=== PATIENT | male | born 1950 | race Caucasian/White ===

== ENCOUNTER 2017-06-08 15:37 | Inpatient (IN) | payer MEDICARE, BC ==
[~2017-06-08] VITALS: Ht 175.3 cm; Wt 68.2 kg
--- NOTE | ~2017-06-08 | DS ---
Discharge Summary [facility] [address] [place]. [address] NAME: PRABHAKAR ESPINOSA : 50 STATUS : DIS IN PAT#: [id number] AGE: 66 ADM/REG DATE : 06/10/17 MR#: [id number] REPORT SERV DATE: 06/27/17 DICTATED BY: ALBINO PERLA DATE: 06/26/17 REPORT STATUS : Draft TRANSCRIBED BY: MODConor DATE: 06/26/17 Data Collection from hospitalization DISCHARGE DIAGNOSIS(ES): 1. Infection post bifemoral bypass graft. 2. Hypertension. 3. Tobacco use. 4. Peripheral vascular disease. 5. Thrombocytopenia. 6. Probable chronic obstructive pulmonary disease. CONSULTATIONS: David Barajas M.D. PROCEDURES PERFORMED: 1. Incision and drainage abscess, bilateral groin sites, vac pack placement x2 right and left groin sites, 06/09/2017. 2. Vac pack placement-removal, incision and drainage, PV with subcutaneous muscle flaps, 06/11/2017. 3. closure of bilateral groin sites, 06/15/2017. 4. CTA of the abdomen and pelvis, 06/08/2017. DISCHARGE MEDICATIONS: Augmentin 875 mg twice a day, aspirin 81 mg daily, Cipro 500 mg every 12 hours, CoQ10 200 mg every day at bedtime, Proscar 5 mg every day at bedtime, Zestoretic one tablet every morning, oxycodone 5 mg every four to six hours as needed, Pravachol 40 mg at bedtime, and Flomax 0.4 mg every day at bedtime. CONDITION AT DISCHARGE: Stable. DISPOSITION: The patient was discharged home to be followed by home health care on a low- sodium, low-cholesterol, cardiac diet with activities as instructed. He would follow up with Brynn Guerrero on 06/20/[address] David Barajas two weeks following discharge. He would follow up for lab work on 06/27/2017. HOSPITAL COURSE: This is a 66-year-old man that we received a call from the home health nurse saying that the left groin wound tunnel had increased significantly over 24 hours and that the tunnel currently measured 7 cm. There was also reported that the right groin was now swelling and it was felt that he should be brought back in for evaluation. The patient said the right groin was swelling and hurting. He was admitted to the hospital at this time for further evaluation and treatment. Upon admission, a CTA of the abdomen and pelvis was performed. He was evaluated by Dr. David Barajas. Cultures on 05/22/2017 had grown Pseudomonas, Citrobacter, and Enterococcus. He had been on oral antibiotics. He had progression of his wound symptoms. He had pain and drainage on the left and swelling at the site of the incision on the right groin as well. He denied any fevers or chills. He was felt to have infected aortofemoral graft on the left side with potential infection as well on the right. Zosyn was going to be started. Plans were being made for the patient to undergo incision and drainage with debridement. On the , the patient was taken to the operating room where he underwent the above-mentioned procedure. He tolerated this well and there were no complications. On the , he became Discharge Summary [address] [address] NAME: PRABHAKAR ESPINOSA ROXANE : 50 STATUS : DIS IN PAT#: [id number] AGE: 66 ADM/REG DATE : 06/10/17 MR#: [id number] REPORT SERV DATE: 06/27/17 DICTATED BY: ALBINO PERLA DATE: 06/26/17 REPORT STATUS : Draft TRANSCRIBED BY: CELE DATE: 06/26/17 a full admit. He had no new symptoms. Zosyn was continued. The patient had some discoloration of his forefoot that appeared to look like a sun rich. He had 2+ dorsalis pedis pulses. Compression stockings were in place. He was going to be held n.p.o. after midnight with plans to return to the operating room. On the , he had no new symptoms. His lungs were clear. White count was 8.6. Zosyn was continued. Blood cultures were negative. He was taken back to the operating room where he underwent the above-mentioned procedure. He tolerated this well and there were no complications. On 06/12/2017, he was afebrile. His abdomen was soft and nontender. He had positive bowel sounds. Blood cultures were negative. Wound cultures were negative. The next day, he had no new symptoms. White count was 8.5. He remained stable over the next few days. On 06/15/2017, he was taken to the operating room where he underwent the above-mentioned procedure. He tolerated this well and there were no complications. One of his operative cultures had grown Pseudomonas. He was changed to Unasyn/Cipro. It was felt that he would probably be discharged on oral Augmentin/Cipro. The left groin wound culture had revealed Pseudomonas. It was felt that he would need six weeks of postop antibiotic treatment. Discharge planning was performed. The patient was adamant about being discharged. The patient had not been out of bed since admission. He had no complaints of pain. Discharge planning was performed. On 06/17/2017, he denied any pain. He was tolerating oral intake. The wound VAC was removed. Jason and sutures were intact. Liver function tests were within normal limits. Platelet count had increased to 93. Left groin wound culture was now negative. It was felt that he would need 5 more weeks of antibiotic treatment. He was going to go home on Cipro and Augmentin. Discharge instructions were given. Due to his improved and stable condition, he was discharged home with the above-stated instructions. Information collected by: Hattie Brooks I submit the above information as my discharge summary. TG/MODL Albino Perla M.D. / [id number] CC: Aimee Joseph III, D.O. Mark Anderson, M.D.
--- NOTE | ~2017-06-08 | OP ---
Record Of Operation [facility] [address] [place]. [address] NAME: PRABHAKAR ESPINOSA : 50 STATUS : DIS IN PAT#: [id number] AGE: 66 ADM/REG DATE : 06/10/17 MR#: [id number] REPORT SERV DATE: 06/28/17 DICTATED BY: ALBINO PERLA DATE: 06/28/17 REPORT STATUS : Draft TRANSCRIBED BY: MODL DATE: 06/28/17 DATE OF PROCEDURE: 06/11/2017 PREPROCEDURE DIAGNOSIS: Bilateral groin wound, status post I and D with exposed aortobifemoral graft bilateral. PROCEDURE PERFORMED: 1. VAC change bilateral groin. 2. Right sartorius muscle flap to cover the entire limb of the right aortobifemoral graft. 3. Left sartorius muscle flap to cover the entire limb of the left aortobifemoral graft. 4. Bilateral deep culture. ANESTHESIA: General. COMPLICATIONS: None. INDICATION FOR PROCEDURE: Secondary to this very pleasant 66-year-old gentleman presenting with evidence of infected bilateral groin wounds and exposed graft. The patient had successful postoperative course and consideration was for possible muscle flap coverage of the graft material. Consent was given. DETAILS OF PROCEDURE: The patient was brought to the endovascular operating room and placed in a supine position, prepped and draped in a routine sterile fashion with attention to the bilateral groin. The right groin was addressed first. The wound was then irrigated clean. There was no purulent material. Everything appeared to have excellent granulation tissue. The graft appeared to be very incorporated and then the dissection proceeded down to the sartorius muscle, which was loop controlled and then skeletonized cephalad all way to the insertion. This was then dissected with cautery. This gave us plenty of length to swing the muscle flap to cover the entire graft segment, which was then sutured carefully to the tissues surrounding the graft. At this point, a VAC sponge was then placed. All bleeding controlled and negative pressure was applied. On the left groin, the wound was then irrigated clean. Again no purulence was noted. Deep cultures were taken. The sartorius was then identified and skeletonized proximally, divided at its insertion and then swung into cover the left limb of the graft. This was adequate. A 4 cm muscle flap was then created and sutured into position covering the entire aspect of the graft. VAC sponge was then placed and then held in place with benzoin, Ioban, and suction applied. The patient tolerated the procedure well. CL/MODL Albino Perla M.D. / [id number] Record Of Operation [address] [address] NAME: PRABHAKAR ESPINOSA : 50 STATUS : DIS IN PAT#: [id number] AGE: 66 ADM/REG DATE : 06/10/17 MR#: [id number] REPORT SERV DATE: 06/28/17 DICTATED BY: ALBINO PERLA DATE: 06/28/17 REPORT STATUS : Draft TRANSCRIBED BY: CELE DATE: 06/28/17 CC: Aimee Joseph III, D.O.
--- NOTE | ~2017-06-08 | OP ---
Record Of Operation [facility] [address] [place]. [address] NAME: PRABHAKAR ESPINOSA : 50 STATUS : DIS IN PAT#: [id number] AGE: 66 ADM/REG DATE : 06/10/17 MR#: [id number] REPORT SERV DATE: 06/28/17 DICTATED BY: ALBINO PERLA DATE: 06/28/17 REPORT STATUS : Draft TRANSCRIBED BY: MODL DATE: 06/28/17 DATE OF PROCEDURE: 06/09/2017 PREPROCEDURE DIAGNOSES: 1. Seroma, right groin. 2. Abscess, left groin. 3. Status post aortobifemoral bypass graft. POSTOPERATIVE DIAGNOSES: 1. Seroma, right groin. 2. Abscess, left groin. 3. Status post aortobifemoral bypass graft. PROCEDURE PERFORMED: 1. Exploration of right groin with resection of seroma/fluid collection over the right limb of the aortobifemoral graft. 2. Right femoral deep cultures taken. 3. Right femoral VAC placement. 4. Exploration of left groin with resection of abscess cavity over exposed left limb of aortobifemoral graft. 5. Deep cultures, left groin. 6. VAC placement, left groin. ATTENDING PHYSICIAN: Albino Perla M.D. ANESTHESIA: General. COMPLICATIONS: None. INDICATION FOR PROCEDURE: Secondary to this very pleasant 66-year-old gentleman presenting with evidence of expanding seroma on the right groin consistent with possible early infection with a known hematoma on the left groin that eventually opened and started to drain. Recommendations were made for I and D of both right and left groin to define the graft to determine if salvage of the graft was possible. Risks and benefits were discussed with the patient. Consent was obtained. DETAILS OF PROCEDURE: The patient was brought to the endovascular operating room, placed in supine position, prepped and draped in routine sterile fashion with attention to bilateral groins. The right groin was addressed first. This was a clean portion of the operation. The surgical resection of the scar was then performed. Dissection proceeded down through the skin and subcutaneous tissues to a cavity, that was entered. Serous fluid was noted. No gross infection was noted. However, at the base of the serous fluid collection, clear evidence of the graft was seen. The anastomosis was not seen, however, just a knuckle of the graft was visible. Deep cultures were then taken. Pulse lavage was then performed for approximately a liter and a half, and all devitalized tissue was then debrided away, and a vacuum sponge was laid carefully into the wound covering all surfaces of the cavity. This Record Of Operation [facility] [address] [place]. [address] NAME: PRABHAKAR ESPINOSA : 50 STATUS : DIS IN PAT#: [id number] AGE: 66 ADM/REG DATE : 06/10/17 MR#: [id number] REPORT SERV DATE: 06/28/17 DICTATED BY: ALBINO PERLA DATE: 06/28/17 REPORT STATUS : Draft TRANSCRIBED BY: MODL DATE: 06/28/[address] with benzoin and Ioban, and a suction tube was attached and then placed to suction. Next, the left groin was then addressed. Again, similar dissection was then performed, ellipsing out the former incision. Dissection proceeded down to a cavity that had clear purulence associated with this, and this was also over top of exposed knuckle of the graft. Deep cultures were then taken, and wide debridement of any devitalized tissue was then performed to remove the entire abscess cavity and all devitalized tissues. An additional 2 L of pulse lavage was then completed. VAC sponge was then placed covering all aspects of the wound and held in place with benzoin and Ioban. The tube was attached, and negative pressure was then applied. The patient tolerated the procedure well. There was no major bleeding, and the patient was then discharged to recovery. CL/MODL Albino Perla M.D. / [id number] CC: Aimee Joseph III, D.O.
--- NOTE | ~2017-06-08 | OP ---
Record Of Operation [facility] [address] [place]. [address] NAME: PRABHAKAR ESPINOSA : 50 STATUS : DIS IN PAT#: [id number] AGE: 66 ADM/REG DATE : 06/10/17 MR#: [id number] REPORT SERV DATE: 06/28/17 DICTATED BY: ALBINO PERLA DATE: 06/28/17 REPORT STATUS : Draft TRANSCRIBED BY: MODL DATE: 06/28/17 DATE OF PROCEDURE: 06/15/2017 PREPROCEDURE DIAGNOSIS: Bilateral groin wound. POSTOPERATIVE DIAGNOSIS: Bilateral groin wound. PROCEDURES PERFORMED: 1. Closure of right groin wound, 15 cm. 2. Closure of left groin wound, 20 cm. ANESTHESIA: Local MAC. COMPLICATIONS: None. INDICATION FOR PROCEDURE: Secondary to this very pleasant 66-year-old gentleman presenting with evidence of exposed right and left limbs of the aortobifemoral graft. A bilateral muscle flap was then placed on 06/11/2017, and recommendations were made for closure of wound if found to be stable. Risks and benefits discussed. Consent was obtained. DETAILS OF PROCEDURE: The patient was brought to the endovascular operating room, placed in the supine position, prepped and draped in routine sterile fashion with attention to the bilateral groins. The right and left groin were then addressed independently. The right groin was irrigated clean, had very good viability of the muscle covering the graft. No evidence of infection, and deep layers were then closed with interrupted Vicryl, and the skin was then closed with interrupted vertical mattress, Prolene. A total of 15 cm was then closed on the right side. On the left side, similar findings were noted, no infection, appeared to be adequately repaired. The muscle was viable covering the graft, and the skin was then closed for a total 20 cm with interrupted vertical mattress, Prolene sutures. The patient tolerated the procedure well. CL/MODL Albino Perla M.D. / [id number] CC: Aimee Joseph III, D.O.
--- NOTE | ~2017-06-08 | CN ---
Consultation Report [facility] [address] [place]. [address] NAME: PRABHAKAR ESPINOSA : 50 STATUS : ADM IN [facility]#: [id number] AGE: 66 ADM/REG DATE : 06/10/17 MR#: [id number] REPORT SERV DATE: 06/11/17 DICTATED BY: RAMON CARUSO DATE: 06/09/17 REPORT STATUS : Draft TRANSCRIBED BY: MODL DATE: 06/09/17 INFECTIOUS DISEASE CONSULT DATE OF CONSULTATION: 06/09/2017 REASON FOR REFERRAL: Evaluation and treatment of postoperative infection. HISTORY OF PRESENT ILLNESS: The patient is a 66-year-old male. He has a history of hypertension, hyperlipidemia, benign prostatic hypertrophy, chronic venous stasis of lower extremities, peripheral vascular disease. He has an abdominal aortic aneurysm. He had progressive ischemic symptoms in his lower extremities, so on 04/30/2017 underwent aortofemoral bypass here at [facility] by Dr. Perla as outlined in his operative note. He postoperatively had confusion, tried to get out of bed several times unattended and had dehiscence of his wound. He also had some postop urinary retention and is followed by Urology. He had to return to the operating room in late April for repair of the dehiscence. A VAC pack was placed on his wound and was sent home with that he had purulent drainage from the left side that was cultured in Dr. Perla's office on 05/22/2017 and it grew Pseudomonas, Citrobacter, and Enterococcus. He was placed on oral antibiotics, but the patient is unaware of what the antibiotic was. He had progression of his wound symptoms, so was admitted last evening. He has pain and drainage on the left. There is also swelling at the site of the incision in the right groin as well. He denies fevers, chills, or flu-like symptoms. PAST MEDICAL HISTORY: Otherwise unremarkable. MEDICATIONS: As described above. ALLERGIES: HE HAS NO KNOWN ANTIMICROBIAL ALLERGIES. SOCIAL HISTORY: He is retired, single. He continues to smoke. He has no history of alcohol or substance abuse. FAMILY HISTORY: Noncontributory. PHYSICAL EXAMINATION: GENERAL: He is a nontoxic, elderly male, somewhat agitated though speech at present is coherent and is oriented to place and time. VITAL SIGNS: His temperature has been normal since arrival here, most recently 98.4, pulse 80, respirations 18, blood pressure 116/61, and his weight is 71 kg. HEENT: Sclerae clear. No oral lesions. NECK: Supple without lymphadenopathy. LUNGS: Clear. HEART: Regular rate and rhythm. ABDOMEN: Soft, nontender. Positive bowel sounds. In the right groin, there is about a 7-8 cm area of fullness with mild erythema and warmth over it and mildly tender on the left Consultation Report [address] [place]. [address] NAME: PRABHAKAR ESPINOSA : 50 STATUS : ADM IN PAT#: [id number] AGE: 66 ADM/REG DATE : 06/10/17 MR#: [id number] REPORT SERV DATE: 06/11/17 DICTATED BY: RAMON CARUSO DATE: 06/09/17 REPORT STATUS : Draft TRANSCRIBED BY: CELE DATE: 06/09/17 side. There is a small 1 cm opening with purulent drainage. No foul odor associated with it. EXTREMITIES: No lesions seen on the legs. LABORATORY DATA: His white blood cell count 7.2, hematocrit 36.7, platelets 89, unremarkable differential on the white blood cell count. BUN and creatinine 21 and 0.98. Procalcitonin less than 0.05. IMPRESSION: Infected aortofemoral graft on the left side with potentially infection as well on the right. The pathogens from cultures done on 05/22/2017, Pseudomonas, Citrobacter, and Enterococcus would be expected ones in the groin, so I suspect those are indeed the pathogens, doubt Staph aureus since it should have easily grown on that culture. RECOMMENDATIONS: 1. We will start Zosyn. We will cover all of these organisms isolated on that culture. 2. Debridement as per Dr. Perla. 3. I will follow the patient with you. I appreciate very much your consulting on this patient. GLENN/CELE Ramon Caruso M.D. / [id number] CC: Aimee Joseph III, D.O.
[~2017-06-08 15:37] MED LIST: CO Q-10200 MG PO; FLOMAX4 PO; HALF81 PO; OXYCOD PO; PRAVACHOL40 MG PO; PRIN10 PO; PROSCAR5 PO; ZESTORETIC1 TAB PO; [UNRECOGNIZED DRUG - OTHER]
[2017-06-08 16:18] LABS: BASOPHILS 0.5 %; BASOPHILS ABSOLUTE 0.04 10/3/uL (0.0-0.16); EOSINOPHILS 0.5 %; EOSINOPHILS ABSOLUTE 0.04 10/3/uL (0.0-0.53); ER CBC TAT 0 Hrs 05 Mins; HEMATOCRIT 40.2 % (40.0-51.0); HEMOGLOBIN 13.3 g/dL (13.6-17.8); IMMATURE GRANULOCYTES 0.5 %; IMMATURE GRANULOCYTES ABSOLUTE 0.04 10/3/uL (0.0-0.11); MEAN CORPUS HGB CONC 33.1 g/dL (32.0-36.0); MEAN CORPUSCULAR HEMOGLOB 30.2 pg (26.0-34.0); MEAN CORPUSCULAR VOLUME 91.4 fL (80-100); MEAN PLATELET VOLUME 10.8 fL (9.2-13.0); MONOCYTES 8.5 %; MONOCYTES ABSOLUTE 0.69 10/3/uL (0.21-1.20); NEUTROPHILS ABSOLUTE 5.57 10/3/uL (2.02-8.40); RBC DISTRIBUTION WIDTH 15.4 % (12.0-16.0); WHITE BLOOD CELLS 8.1 10/3/uL (4.5-10.5)
[2017-06-08 16:19] LABS: MANUAL DIFF NO %; PLATELET COUNT 82 10/3/uL (150-400)
[2017-06-08 16:32] LABS: A/G RATIO 0.7 (0.7-1.9); ALBUMIN 2.8 G/DL (3.5-5.0); ALKALINE PHOSPHATASE 79 U/L (45-117); CALCIUM, SERUM 8.7 MG/DL (8.5-10.4); CHLORIDE, SERUM 105 MMOL/L (96-112); CO2 (CARBON DIOXIDE) 28 MMOL/L (24-34); CREATININE 0.95 MG/DL (0.70-1.30); GFR AFRICAN AMERICAN 96 ML/MIN (>=60); GFR NON AFRICAN AMERICAN 83 ML/MIN (>=60); GLUCOSE, SERUM 110 MG/DL (60-99); SGOT(AST) 14 U/L (5-40); SGPT(ALT) 13 U/L (5-65); SODIUM, SERUM 140 MMOL/L (135-148); TOTAL BILIRUBIN 0.8 MG/DL (0-1.2); TOTAL PROTEIN 6.6 G/DL (6.0-8.5)
[2017-06-08 16:33] LABS: BUN (BLOOD UREA NITROGEN) 19 MG/DL (6-23); GLOBULIN 3.8 G/DL (2.5-4.1); POTASSIUM, SERUM 2.8 MMOL/L (3.5-5.3)
[2017-06-08 17:03] LABS: ASCORBIC ACID (UR NOT ORDER) NEG (NEG); BILIRUBIN, URINE NEGATIVE (NEG); KETONE, URINE NEGATIVE (NEG); LEUKOCYTE ESTERASE(NOT OR NEG (NEG); NITRITE (URINE) NEG (NEG); WBC (NOT ORDERED) (RFLEX) 1 (0-5)
[2017-06-08 21:22] LABS: PROCALCITONIN <0.05 ng/mL (<0.5)
[2017-06-09 05:33] LABS: BASOPHILS 0.6 %; BASOPHILS ABSOLUTE 0.04 10/3/uL (0.0-0.16); EOSINOPHILS 0.6 %; EOSINOPHILS ABSOLUTE 0.04 10/3/uL (0.0-0.53); HEMATOCRIT 36.7 % (40.0-51.0); IMMATURE GRANULOCYTES 0.6 %; IMMATURE GRANULOCYTES ABSOLUTE 0.04 10/3/uL (0.0-0.11); LYMPHOCYTES 24.8 %; LYMPHOCYTES ABSOLUTE 1.79 10/3/uL (0.67-4.30); MEAN CORPUS HGB CONC 32.7 g/dL (32.0-36.0); MEAN CORPUSCULAR HEMOGLOB 29.5 pg (26.0-34.0); MEAN CORPUSCULAR VOLUME 90.2 fL (80-100); MEAN PLATELET VOLUME 11.7 fL (9.2-13.0); MONOCYTES ABSOLUTE 0.58 10/3/uL (0.21-1.20); NEUTROPHILS 65.4 %; NEUTROPHILS ABSOLUTE 4.73 10/3/uL (2.02-8.40); PLATELET COUNT 89 10/3/uL (150-400); RBC DISTRIBUTION WIDTH 15.6 % (12.0-16.0); RED CELL COUNT 4.07 10/6/uL (4.7-6.1); WHITE BLOOD CELLS 7.2 10/3/uL (4.5-10.5)
[2017-06-09 05:36] LABS: MANUAL DIFF NO %
[2017-06-09 05:47] LABS: BUN (BLOOD UREA NITROGEN) 21 MG/DL (6-23); CALCIUM, SERUM 8.7 MG/DL (8.5-10.4); CHLORIDE, SERUM 109 MMOL/L (96-112); CO2 (CARBON DIOXIDE) 28 MMOL/L (24-34); CREATININE 0.98 MG/DL (0.70-1.30); GFR AFRICAN AMERICAN 93 ML/MIN (>=60); GFR NON AFRICAN AMERICAN 80 ML/MIN (>=60); GLUCOSE, SERUM 136 MG/DL (60-99); POTASSIUM, SERUM 3.5 MMOL/L (3.5-5.3); SODIUM, SERUM 144 MMOL/L (135-148)
[2017-06-09] MEDS ORDERED: CIP5 PO (09:55)
[2017-06-09] MEDS ORDERED: DORYX100 MG PO (09:56)
[2017-06-10 05:11] LABS: BASOPHILS 0.3 %; BASOPHILS ABSOLUTE 0.03 10/3/uL (0.0-0.16); EOSINOPHILS 0.4 %; EOSINOPHILS ABSOLUTE 0.04 10/3/uL (0.0-0.53); HEMATOCRIT 33.8 % (40.0-51.0); HEMOGLOBIN 10.9 g/dL (13.6-17.8); IMMATURE GRANULOCYTES 0.6 %; IMMATURE GRANULOCYTES ABSOLUTE 0.06 10/3/uL (0.0-0.11); MEAN CORPUS HGB CONC 32.2 g/dL (32.0-36.0); MEAN CORPUSCULAR HEMOGLOB 29.5 pg (26.0-34.0); MEAN CORPUSCULAR VOLUME 91.4 fL (80-100); MEAN PLATELET VOLUME 10.9 fL (9.2-13.0); MONOCYTES 8.5 %; MONOCYTES ABSOLUTE 0.85 10/3/uL (0.21-1.20); NEUTROPHILS 72.2 %; NEUTROPHILS ABSOLUTE 7.23 10/3/uL (2.02-8.40); PLATELET COUNT 74 10/3/uL (150-400); RBC DISTRIBUTION WIDTH 15.4 % (12.0-16.0)
[2017-06-10 05:12] LABS: MANUAL DIFF NO %
[2017-06-10 05:26] LABS: BUN (BLOOD UREA NITROGEN) 22 MG/DL (6-23); CALCIUM, SERUM 8.6 MG/DL (8.5-10.4); CHLORIDE, SERUM 106 MMOL/L (96-112); CO2 (CARBON DIOXIDE) 27 MMOL/L (24-34); CREATININE 1.12 MG/DL (0.70-1.30); GFR AFRICAN AMERICAN 79 ML/MIN (>=60); GFR NON AFRICAN AMERICAN 68 ML/MIN (>=60); GLUCOSE, SERUM 121 MG/DL (60-99); POTASSIUM, SERUM 3.4 MMOL/L (3.5-5.3); SODIUM, SERUM 141 MMOL/L (135-148)
[2017-06-11 06:06] LABS: BASOPHILS 0.5 %; BASOPHILS ABSOLUTE 0.04 10/3/uL (0.0-0.16); EOSINOPHILS 0.6 %; EOSINOPHILS ABSOLUTE 0.05 10/3/uL (0.0-0.53); HEMOGLOBIN 12.3 g/dL (13.6-17.8); IMMATURE GRANULOCYTES 0.3 %; IMMATURE GRANULOCYTES ABSOLUTE 0.03 10/3/uL (0.0-0.11); LYMPHOCYTES 26.2 %; LYMPHOCYTES ABSOLUTE 2.25 10/3/uL (0.67-4.30); MEAN CORPUS HGB CONC 32.6 g/dL (32.0-36.0); MEAN CORPUSCULAR HEMOGLOB 29.5 pg (26.0-34.0); MEAN CORPUSCULAR VOLUME 90.4 fL (80-100); MEAN PLATELET VOLUME 10.6 fL (9.2-13.0); MONOCYTES 8.4 %; MONOCYTES ABSOLUTE 0.72 10/3/uL (0.21-1.20); NEUTROPHILS ABSOLUTE 5.51 10/3/uL (2.02-8.40); PLATELET COUNT 70 10/3/uL (150-400); RBC DISTRIBUTION WIDTH 15.4 % (12.0-16.0); RED CELL COUNT 4.17 10/6/uL (4.7-6.1); WHITE BLOOD CELLS 8.6 10/3/uL (4.5-10.5)
[2017-06-11 06:07] LABS: HEMATOCRIT 37.7 % (40.0-51.0); MANUAL DIFF NO %
[2017-06-11 06:19] LABS: BUN (BLOOD UREA NITROGEN) 22 MG/DL (6-23); CALCIUM, SERUM 8.7 MG/DL (8.5-10.4); CHLORIDE, SERUM 109 MMOL/L (96-112); CO2 (CARBON DIOXIDE) 28 MMOL/L (24-34); CREATININE 1.19 MG/DL (0.70-1.30); GFR AFRICAN AMERICAN 73 ML/MIN (>=60); GFR NON AFRICAN AMERICAN 63 ML/MIN (>=60); SODIUM, SERUM 142 MMOL/L (135-148)
[2017-06-11 06:20] LABS: GLUCOSE, SERUM 91 MG/DL (60-99); POTASSIUM, SERUM 4.1 MMOL/L (3.5-5.3)
[2017-06-12 06:53] LABS: BASOPHILS 0.2 %; BASOPHILS ABSOLUTE 0.02 10/3/uL (0.0-0.16); EOSINOPHILS 0.9 %; EOSINOPHILS ABSOLUTE 0.07 10/3/uL (0.0-0.53); HEMATOCRIT 35.4 % (40.0-51.0); HEMOGLOBIN 11.5 g/dL (13.6-17.8); IMMATURE GRANULOCYTES 0.4 %; IMMATURE GRANULOCYTES ABSOLUTE 0.03 10/3/uL (0.0-0.11); LYMPHOCYTES 16.1 %; MANUAL DIFF NO %; MEAN CORPUS HGB CONC 32.5 g/dL (32.0-36.0); MEAN CORPUSCULAR HEMOGLOB 29.6 pg (26.0-34.0); MONOCYTES 9.7 %; MONOCYTES ABSOLUTE 0.78 10/3/uL (0.21-1.20); NEUTROPHILS 72.7 %; NEUTROPHILS ABSOLUTE 5.86 10/3/uL (2.02-8.40); PLATELET COUNT 68 10/3/uL (150-400); RED CELL COUNT 3.89 10/6/uL (4.7-6.1); WHITE BLOOD CELLS 8.1 10/3/uL (4.5-10.5)
[2017-06-12 07:06] LABS: BUN (BLOOD UREA NITROGEN) 19 MG/DL (6-23); CHLORIDE, SERUM 106 MMOL/L (96-112); CO2 (CARBON DIOXIDE) 26 MMOL/L (24-34); CREATININE 0.95 MG/DL (0.70-1.30); GFR AFRICAN AMERICAN 96 ML/MIN (>=60); GFR NON AFRICAN AMERICAN 83 ML/MIN (>=60); GLUCOSE, SERUM 99 MG/DL (60-99); POTASSIUM, SERUM 3.4 MMOL/L (3.5-5.3); SODIUM, SERUM 140 MMOL/L (135-148)
[2017-06-12 07:22] LABS: PLATELET ESTIMATE DEC (ADEQUATE); RBC MORPHOLOGY NORM (NORMAL)
[2017-06-13 06:37] LABS: BASOPHILS 0.4 %; BASOPHILS ABSOLUTE 0.03 10/3/uL (0.0-0.16); EOSINOPHILS 0.9 %; EOSINOPHILS ABSOLUTE 0.08 10/3/uL (0.0-0.53); HEMATOCRIT 35.5 % (40.0-51.0); HEMOGLOBIN 11.6 g/dL (13.6-17.8); IMMATURE GRANULOCYTES 0.5 %; IMMATURE GRANULOCYTES ABSOLUTE 0.04 10/3/uL (0.0-0.11); LYMPHOCYTES 18.4 %; LYMPHOCYTES ABSOLUTE 1.56 10/3/uL (0.67-4.30); MEAN CORPUS HGB CONC 32.7 g/dL (32.0-36.0); MEAN CORPUSCULAR HEMOGLOB 29.1 pg (26.0-34.0); MEAN CORPUSCULAR VOLUME 89.2 fL (80-100); MEAN PLATELET VOLUME 11.3 fL (9.2-13.0); MONOCYTES 11.1 %; MONOCYTES ABSOLUTE 0.94 10/3/uL (0.21-1.20); NEUTROPHILS 68.7 %; NEUTROPHILS ABSOLUTE 5.81 10/3/uL (2.02-8.40); PLATELET COUNT 71 10/3/uL (150-400); RBC DISTRIBUTION WIDTH 14.9 % (12.0-16.0); RED CELL COUNT 3.98 10/6/uL (4.7-6.1); WHITE BLOOD CELLS 8.5 10/3/uL (4.5-10.5)
[2017-06-13 06:39] LABS: MANUAL DIFF NO %
[2017-06-13 06:49] LABS: BUN (BLOOD UREA NITROGEN) 20 MG/DL (6-23); CALCIUM, SERUM 8.5 MG/DL (8.5-10.4); CHLORIDE, SERUM 107 MMOL/L (96-112); CO2 (CARBON DIOXIDE) 25 MMOL/L (24-34); CREATININE 0.92 MG/DL (0.70-1.30); GFR AFRICAN AMERICAN 100 ML/MIN (>=60); GFR NON AFRICAN AMERICAN 86 ML/MIN (>=60); GLUCOSE, SERUM 102 MG/DL (60-99); POTASSIUM, SERUM 3.4 MMOL/L (3.5-5.3); SODIUM, SERUM 138 MMOL/L (135-148)
[2017-06-13 07:12] LABS: PLATELET ESTIMATE DEC (ADEQUATE)
[2017-06-13 07:13] LABS: RBC MORPHOLOGY NORM (NORMAL)
[2017-06-14 07:36] LABS: BASOPHILS 0.7 %; BASOPHILS ABSOLUTE 0.05 10/3/uL (0.0-0.16); EOSINOPHILS 2.3 %; EOSINOPHILS ABSOLUTE 0.16 10/3/uL (0.0-0.53); HEMATOCRIT 34.6 % (40.0-51.0); HEMOGLOBIN 11.2 g/dL (13.6-17.8); IMMATURE GRANULOCYTES 0.7 %; IMMATURE GRANULOCYTES ABSOLUTE 0.05 10/3/uL (0.0-0.11); LYMPHOCYTES 25.8 %; LYMPHOCYTES ABSOLUTE 1.77 10/3/uL (0.67-4.30); MEAN CORPUS HGB CONC 32.4 g/dL (32.0-36.0); MEAN CORPUSCULAR HEMOGLOB 29.4 pg (26.0-34.0); MEAN CORPUSCULAR VOLUME 90.8 fL (80-100); MEAN PLATELET VOLUME 10.9 fL (9.2-13.0); MONOCYTES 12.2 %; MONOCYTES ABSOLUTE 0.84 10/3/uL (0.21-1.20); NEUTROPHILS 58.3 %; PLATELET COUNT 62 10/3/uL (150-400); RBC DISTRIBUTION WIDTH 14.8 % (12.0-16.0); RED CELL COUNT 3.81 10/6/uL (4.7-6.1); WHITE BLOOD CELLS 6.9 10/3/uL (4.5-10.5)
[2017-06-14 07:38] LABS: MANUAL DIFF NO %
[2017-06-14 07:45] LABS: BUN (BLOOD UREA NITROGEN) 18 MG/DL (6-23); CALCIUM, SERUM 8.2 MG/DL (8.5-10.4); CHLORIDE, SERUM 109 MMOL/L (96-112); CO2 (CARBON DIOXIDE) 24 MMOL/L (24-34); CREATININE 0.92 MG/DL (0.70-1.30); GFR AFRICAN AMERICAN 100 ML/MIN (>=60); GFR NON AFRICAN AMERICAN 86 ML/MIN (>=60); GLUCOSE, SERUM 111 MG/DL (60-99); POTASSIUM, SERUM 3.5 MMOL/L (3.5-5.3); SODIUM, SERUM 140 MMOL/L (135-148)
[2017-06-14 08:03] LABS: PLATELET ESTIMATE DEC (ADEQUATE); RBC MORPHOLOGY NORM (NORMAL)
[2017-06-17 07:51] LABS: BASOPHILS 0.7 %; BASOPHILS ABSOLUTE 0.06 10/3/uL (0.0-0.16); EOSINOPHILS 2.6 %; EOSINOPHILS ABSOLUTE 0.21 10/3/uL (0.0-0.53); HEMATOCRIT 36.7 % (40.0-51.0); HEMOGLOBIN 11.9 g/dL (13.6-17.8); IMMATURE GRANULOCYTES 1.1 %; IMMATURE GRANULOCYTES ABSOLUTE 0.09 10/3/uL (0.0-0.11); LYMPHOCYTES 28.1 %; LYMPHOCYTES ABSOLUTE 2.25 10/3/uL (0.67-4.30); MEAN CORPUS HGB CONC 32.4 g/dL (32.0-36.0); MEAN CORPUSCULAR HEMOGLOB 28.9 pg (26.0-34.0); MEAN CORPUSCULAR VOLUME 89.1 fL (80-100); MEAN PLATELET VOLUME 11.7 fL (9.2-13.0); MONOCYTES ABSOLUTE 0.88 10/3/uL (0.21-1.20); NEUTROPHILS 56.5 %; NEUTROPHILS ABSOLUTE 4.53 10/3/uL (2.02-8.40); RED CELL COUNT 4.12 10/6/uL (4.7-6.1)
[2017-06-17 07:53] LABS: MANUAL DIFF NO %; PLATELET COUNT 93 10/3/uL (150-400)
[2017-06-17 08:09] LABS: A/G RATIO 0.6 (0.7-1.9); ALBUMIN 2.3 G/DL (3.5-5.0); ALKALINE PHOSPHATASE 65 U/L (45-117); BUN (BLOOD UREA NITROGEN) 24 MG/DL (6-23); CALCIUM, SERUM 8.9 MG/DL (8.5-10.4); CHLORIDE, SERUM 108 MMOL/L (96-112); CO2 (CARBON DIOXIDE) 22 MMOL/L (24-34); CREATININE 1.06 MG/DL (0.70-1.30); GFR AFRICAN AMERICAN 84 ML/MIN (>=60); GFR NON AFRICAN AMERICAN 73 ML/MIN (>=60); GLUCOSE, SERUM 103 MG/DL (60-99); POTASSIUM, SERUM 4.1 MMOL/L (3.5-5.3); SGOT(AST) 23 U/L (5-40); SGPT(ALT) 23 U/L (5-65); SODIUM, SERUM 142 MMOL/L (135-148); TOTAL BILIRUBIN 0.6 MG/DL (0-1.2); TOTAL PROTEIN 6.3 G/DL (6.0-8.5)
[2017-06-17] MEDS ORDERED: AUG875 PO (15:50)
== END 2017-06-17 16:48 | disposition home or self-care (01) | DRG 264 ==
LOC: ER 15:37 → 2SO 23:32
PROVIDERS: Emergency Medicine; Internal Medicine Infectious Disease; Nurse Practitioner; Specialist
PROC: 0J9C0ZZ Drainage of Pelvic Region Subcutaneous Tissue and Fascia, Open Approach (ICD-10-PCS; 2017-06-09)
PROC: 0JPW0XZ Removal of Tunneled Vascular Access Device from Lower Extremity Subcutaneous Tissue and Fascia, Open Approach (ICD-10-PCS; 2017-06-09)
PROC: 0Y950ZZ Drainage of Right Inguinal Region, Open Approach (ICD-10-PCS; principal; 2017-06-09 10:15)
PROC: 0KUQ07Z Supplement Right Upper Leg Muscle with Autologous Tissue Substitute, Open Approach (ICD-10-PCS; 2017-06-11)
PROC: 0KBR0ZZ Excision of Left Upper Leg Muscle, Open Approach (ICD-10-PCS; 2017-06-11)
PROC: 0KBQ0ZZ Excision of Right Upper Leg Muscle, Open Approach (ICD-10-PCS; 2017-06-11)
PROC: 0Y980ZZ Drainage of Left Femoral Region, Open Approach (ICD-10-PCS; 2017-06-11)
PROC: 0KXT0ZZ Transfer Left Lower Leg Muscle, Open Approach (ICD-10-PCS; 2017-06-11 21:15)
PROC: 0HQKXZZ Repair Right Lower Leg Skin, External Approach (ICD-10-PCS; 2017-06-15)
PROC: 0HQLXZZ Repair Left Lower Leg Skin, External Approach (ICD-10-PCS; 2017-06-15)
DX: T82.7XXA Infection and inflammatory reaction due to other cardiac and vascular devices, implants and grafts, initial encounter (principal); T81.32XA Disruption of internal operation (surgical) wound, not elsewhere classified, initial encounter; D69.6 Thrombocytopenia, unspecified; L02.416 Cutaneous abscess of left lower limb; L02.214 Cutaneous abscess of groin; I10 Essential (primary) hypertension; N40.0 Benign prostatic hyperplasia without lower urinary tract symptoms; I71.4 Abdominal aortic aneurysm, without rupture; I87.8 Other specified disorders of veins; E78.2 Mixed hyperlipidemia; I70.401 Unspecified atherosclerosis of autologous vein bypass graft(s) of the extremities, right leg; R33.8 Other retention of urine; B96.5 Pseudomonas (aeruginosa) (mallei) (pseudomallei) as the cause of diseases classified elsewhere; B95.2 Enterococcus as the cause of diseases classified elsewhere; B96.89 Other specified bacterial agents as the cause of diseases classified elsewhere; F17.210 Nicotine dependence, cigarettes, uncomplicated; M48.06 Spinal stenosis, lumbar region
CPT/HCPCS: 74174; 80048; 80053; 81001; 83605; 83690; 84145; 85025; 87015; 87040; 87070; 87075; 87077; 87102; 87116; 87186; 87205; 87493; 87493-59; 93005; 99285; A9270-GY; J0295; J0330; J1170; J2250; J2370; J2405; J2543; J2710; J3010; Q9967